=== PATIENT | male | born 1975 | race African-American/Black ===

== ENCOUNTER 2019-09-13 12:13 | Emergency (ER) | payer OTHER, MEDICAID ==
[~2019-09-13] VITALS: Ht 188 cm; Wt 98.0 kg
[2019-09-13] MEDS ORDERED: ACETAMINOPHEN 500 MG TABLET PO ONE (14:30)
[2019-09-13] MEDS ORDERED: IBUPROFEN 600 MG TABLET PO ONE (14:30)
[2019-09-13] MEDS ORDERED: LIDOCAINE 5% TRANSDERMAL PATCH TD ONE (14:30)
[2019-09-13 16:05] VITALS: BP 119/75
== END 2019-09-13 16:14 | disposition home or self-care (01) ==
LOC: EMS 12:16
DX: S20.211A Contusion of right front wall of thorax, initial encounter (principal); F17.210 Nicotine dependence, cigarettes, uncomplicated; V49.9XXA Car occupant (driver) (passenger) injured in unspecified traffic accident, initial encounter; Y93.89 Activity, other specified; Y92.488 Other paved roadways as the place of occurrence of the external cause; Y99.8 Other external cause status
CPT/HCPCS: 71101; 99285; G0238